=== PATIENT | male | born 1955 | race African-American/Black ===

== ENCOUNTER 2019-06-25 18:41 | Emergency (ER) | payer MEDICARE, MEDICAID ==
[~2019-06-25] VITALS: Ht 185.4 cm; Wt 80.0 kg
[2019-06-25] MEDS ORDERED: QUET100T PO (18:58)
[2019-06-25] MEDS ORDERED: LISI10TA5 PO (18:58)
[2019-06-25 22:38] VITALS: BP 153/98
== END 2019-06-26 00:13 | disposition left against medical advice (07) ==
LOC: ER 18:41
DX: Z53.21 Procedure and treatment not carried out due to patient leaving prior to being seen by health care provider (principal)